=== PATIENT | male | born 1995 | race Caucasian/White ===

== ENCOUNTER 2016-12-23 03:16 | Emergency (ER) | payer BC ==
[~2016-12-23] VITALS: Ht 177.8 cm; Wt 81.8 kg
[2016-12-23 05:55] VITALS: BP 121/73
== END 2016-12-23 06:00 | disposition home or self-care (01) ==
LOC: EMS 03:18
DX: F10.129 Alcohol abuse with intoxication, unspecified (principal); F17.210 Nicotine dependence, cigarettes, uncomplicated
CPT/HCPCS: 99283